=== PATIENT | female | born 1985 | race Caucasian/White ===

== ENCOUNTER 2016-09-03 21:57 | Emergency (ER) | payer MEDICAID ==
[~2016-09-03] VITALS: Ht 157.5 cm; Wt 85.5 kg
[~2016-09-03 21:57] MED LIST: ATOR10TA PO; CEFU500T PO; DICY20TA3 PO; FAMO20TA7 PO; HYDR-3138 PO; LEVO125T5 PO; OMEP-110 PO; OMEP40CA3 PO; ONDA4TAB10 PO; RANI300C PO; SUCR1ORA11 PO; TRAM-28 PO
[2016-09-03 21:59] VITALS: BP 107/71
[2016-09-03] MEDS ORDERED: IBUPROFEN 200 MG TABLET ONE (22:46)
[2016-09-03] MEDS ORDERED: IBUPROFEN 200 MG TABLET PO ONE (23:00)
== END 2016-09-03 23:43 | disposition home or self-care (01) ==
LOC: ED 23:37
DX: L03.032 Cellulitis of left toe (principal)

== ENCOUNTER → 2017-10-13 | Outpatient (CLI) | payer MEDICAID ==
[~2017-10-13] MED LIST changes: -HYDR-3138 PO; +HYDR-3237 PO; -TRAM-28 PO; +TRAM-47 PO
== END ==
LOC: CFH 07:11
PROVIDERS: ATTEND Physician Assistant
DX: K25.4 Chronic or unspecified gastric ulcer with hemorrhage (principal); K90.0 Celiac disease
CPT/HCPCS: 76705

== ENCOUNTER 2017-10-25 14:39 | Emergency (ER) | payer MEDICAID ==
[~2017-10-25] VITALS: Ht 157.5 cm; Wt 72.2 kg
[2017-10-25 14:48] VITALS: BP 119/82
== END 2017-10-25 16:04 | disposition home or self-care (01) ==
LOC: ED 15:45
DX: L02.01 Cutaneous abscess of face (principal); F17.200 Nicotine dependence, unspecified, uncomplicated
CPT/HCPCS: 10160; 99284

== ENCOUNTER 2019-05-18 10:25 | Emergency (ER) | payer MEDICAID ==
[~2019-05-18] VITALS: Ht 157.5 cm; Wt 71.2 kg
[2019-05-18 11:16] VITALS: BP 117/76
[2019-05-18] MEDS ORDERED: KETOROLAC 30 MG/1 ML ONE (11:58)
[2019-05-18] MEDS ORDERED: PROMETHAZINE 25 MG/ML, 1ML ONE (11:58)
[2019-05-18] MEDS ORDERED: KETOROLAC 30 MG/1 ML IM ONE (12:00)
[2019-05-18] MEDS ORDERED: PROMETHAZINE 25 MG/ML, 1ML IM ONE (12:00)
[2019-05-18] MEDS ORDERED: HYDROcodone/APAP 5/325 TABLET ONE (12:20)
[2019-05-18] MEDS ORDERED: HYDROcodone/APAP 5/325 TABLET PO ONE (12:30)
--- NOTE | 2019-05-18 12:46 | NUR ---
Patient given discharge instructions and they have confirmed that they understand the instructions. Patient ambulatory with steady gait.
== END 2019-05-18 12:47 | disposition home or self-care (01) ==
LOC: ED 12:30
DX: J01.00 Acute maxillary sinusitis, unspecified (principal); R05 Cough; K21.9 Gastro-esophageal reflux disease without esophagitis; F17.200 Nicotine dependence, unspecified, uncomplicated
CPT/HCPCS: 96372; 99283; J1885; J2550